=== PATIENT | female | born 1930 | race Caucasian/White ===

== ENCOUNTER 2016-07-17 14:16 | Inpatient (IN) | payer OTHER, MEDICARE ==
[2016-07-17] VITALS (7 sets, daily range): BP systolic 104–129; BP diastolic 40–59
[~2016-07-17] VITALS: Ht 157.5 cm; Wt 55.3 kg
--- NOTE | ~2016-07-17 | H ---
[facility] [place] [address] HISTORY AND PHYSICAL Name: KEYON WELLS Room #: 427-P [facility] IN M.R.#: [id number] Admission: 07/17/16 Attend Phys: Trevor Decker MD Discharge: 07/18/16 Date of : [birth year] Report #: [id number] THIS REPORT FOR: //name// CC: Dr. [facility] Decker DATE OF SERVICE: 07/17/2016 HISTORY OF PRESENT ILLNESS: The patient is an 86-year-old female with a recent diagnosis of acute myeloid leukemia and monoclonal gammopathy of unknown significance was referred for admission from Oncology clinic secondary to weakness and severe anemia. The patient is well known to me from her previous admission here at [facility] for anemia, cough, congestion and weakness. The patient's initial hemoglobin at that time was 6.6. She was transfused packed RBC during that admission. She also underwent upper endoscopy during that admission, which showed grade a esophagitis, hiatal hernia Schatzki ring, which was dilated. During that admission, she was also noticed to be leukopenic and anemic. The patient was evaluated by oncologist and underwent a bone marrow biopsy. The patient stated that she had subsequently followed up with Dr. Gaston and had 5 rounds of chemotherapy, last chemo was few weeks ago. She has apparently scheduled to restart chemo again on August 26. The patient was seen by oncologist today for generalized weakness of 4-day duration. She had no visual disturbance, no focal weakness, no dizziness. During admission, denies any chest pain or shortness of breath. She does have chronic cough. She has had some mild nausea. She has had poor appetite still because of her gastroesophageal reflux disease. PAST MEDICAL HISTORY: Significant for anemia, leukopenia, acute myeloid leukemia, monochromal gammopathy of unknown significance, history of TIA, history of grade a esophagitis hiatal hernia, schatzkis ring. The patient also has history of chronic idiopathic constipation, history of glaucoma, history of partial hysterectomy in the past. ALLERGIES: SULFA, UNKNOWN REACTION. HOME MEDICATIONS: Please look at the nursing documentation. Home meds were reviewed. SOCIAL HISTORY: No smoking, alcohol abuse or illicit drug abuse. The patient lives alone, normally walks without any system, but over the last few days, she started using her walker again. FAMILY HISTORY: Noncontributory for admission. REVIEW OF SYSTEMS: [facility] [address] [place] [address] HISTORY AND PHYSICAL Name: KEYON WELLS Room #: 427-P [facility] IN M.R.#: [id number] Admission: 07/17/16 Attend Phys: Trevor Decker MD Discharge: 07/18/16 Date of : [birth year] Report #: [id number] CONSTITUTIONAL: No fever or chills. EYES: No change in vision. She had lost some weight, unable to quantify. THROAT: Denies any sore throat. CARDIOVASCULAR: No chest pain, dizziness, palpitations. RESPIRATORY: Still has some cough, no expectoration. GASTROINTESTINAL: Mild nausea, no vomiting. She had some few loose stools yesterday. No abdominal pain. GENITOURINARY: No dysuria, hematuria. NEUROLOGIC: No focal numbness or weakness of the extremity. PSYCHIATRIC: No anxiety or depression. The 12-point review of system is negative other than the positive and negative dictated in the history of present illness and the review of system. PHYSICAL EXAMINATION: VITAL SIGNS: Blood pressure 115/48, heart rate of 90 per minute, afebrile. GENERAL: The patient is awake and alert, not in acute respiratory distress. EYES: Pupils equal, reactive to light. THROAT: She has a mildly dry oral mucosa. NECK: Supple, no JVD, no bruit, no lymphadenopathy. CARDIOVASCULAR SYSTEM: S1, S2. No S3, no murmur. CHEST: Bilateral air entry present. Clear on auscultation. ABDOMEN: Soft, bowel sounds present, no mass, no organomegaly, no tenderness. PERIPHERY: No pedal edema. No calf tenderness. Dorsalis pedis 1+. NEUROLOGICAL: No gross motor or sensory deficit. LABORATORY DATA: Reviewed. The labs done this morning showed a hemoglobin of 7.3, her hemoglobin on June 13 was 9.9, hemoglobin was 8.7 on 07/04/2016, white count is 1.8, platelet is 159. She has 5 ____. Chemistry showed a sodium of 134, BUN and creatinine of 52 and 2.0. AST and ALT are within normal limits. ASSESSMENT AND PLAN: 1. Generalized weakness secondary to anemia. 2. Anemia. The patient will be transfused 2 units of packed red blood cells. We will repeat her hemoglobin in the morning. We will consult clinical applications specialist. We will also check a stool for occult blood. The patient does have history of grade a esophagitis in the past. 3. History of grade a esophagitis and hiatal hernia. The patient will be placed on IV Protonix. 4. Deep venous thrombosis prophylaxis. The patient will be placed on sequential compression device on the leg for deep venous thrombosis prophylaxis. 5. Acute myeloid leukemia, presently on chemotherapy, we will consult clinical applications specialist. 6. History of hypertension and history of hyperlipidemia. The patient will be continued on ____ home medication. 7. History of monoclonal gammopathy of unknown significance. [place] [id number] HISTORY AND PHYSICAL Name: KEYON WELLS Room #: 427-P [facility] IN M.R.#: [id number] Admission: 07/17/16 Attend Phys: Trevor Decker MD Discharge: 07/18/16 Date of : [birth year] Report #: [id number] 8. Acute renal failure, likely prerenal. We will check her uric acid level. We will hydrate her with IV fluid and repeat her labs in the morning. Treatment plan has been explained to the patient in detail. <ELECTRONICALLY SIGNED> By: Trevor Decker MD 07/20/16 1417 1633 1734 Trevor Decker MD /nt
--- NOTE | ~2016-07-17 | EKG ---
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: Ellen HUTCHISON : 1930 Requested By: Mayuri Nowak Order Number: [id number] MD: Michael Guzman Measurements Intervals [place] Rate: 96 P: 51 AL: 134 QRS: 20 QRSD: 74 T: 48 QT: 339 QTc: 429 Interpretive Statements Sinus rhythm Posterior infarct, old Baseline wander in lead(s) V1 Compared to ECG 06/09/2016 20:12:25 Myocardial infarct finding now present Atrial premature complex(es) no longer present Electronically Signed On 07-17-2016 15:20:24 [employer]CTOR [employer]SEM[employer] by Michael Guzman [email or web address] <ELECTRONICALLY SIGNED> By: Michael Guzman MD 07/17/16 1520 1440 1440 Michael Guzman MD /JAMES
[~2016-07-17 14:16] MED LIST: ADULT LOW DOSE81 MG PO; AMBIEN 5 MG TABL5 M1 PO; AMITRIPTYLINE H10 M3 PO; AMITRIPTYLINE H25 M3 PO; B-121000 MC2 PO; BENZONATATE200 MG PO; BIOTIN1 MG PO; CENTRUM SILVER1 EAC4 PO; HYDROCHLOROTH12.5 MG PO; LEVAQUIN 500 M500 MG PO; LIPITOR 20 MG T20 M1 PO; LISINOPRIL40 MG PO; MELATONIN3 MG PO; PROTONIX40 M2 PO; SIMVASTATIN20 MG PO; ZYPREXA2.5 MG PO; ZYRTEC
[2016-07-17 14:57] LABS: RDW 17.2 % (10.5-14.5)
[2016-07-17 14:58] LABS: HEMATOCRIT 21.4 % (37.0-47.0); MCH 33.3 pg (26.0-34.0); MCV 97.8 fL (80.0-100.0); PLATELET COUNT 159 thou/uL (150-400); RBC 2.18 mil/uL (4.20-5.00)
[2016-07-17 15:01] LABS: MANUAL DIFF YES
[2016-07-17 15:02] LABS: HEMOGLOBIN 7.3 gm/dL (12.0-15.0)
[2016-07-17 15:03] LABS: WBC 1.8 thou/uL (4.0-11.0)
[2016-07-17 15:07] LABS: ANION GAP 12 mmol/L (7-16); BUN 52 mg/dL (7-18); CALCIUM 9.1 mg/dL (8.5-10.1); CHLORIDE 97 mmol/L (98-107); CO2 25 mmol/L (21-32); GLUCOSE 122 mg/dL (70-99); POTASSIUM 4.6 mmol/L (3.5-5.1); SODIUM 134 mmol/L (136-145)
[2016-07-17 15:12] LABS: ALBUMIN 2.8 g/dL (3.4-5.0); ALKALINE PHOSPHATASE 103 U/L (46-116); SGOT 15 U/L (15-37); SGPT 26 U/L (30-65); TOTAL BILIRUBIN 0.6 mg/dL (<0.1-1.0); TOTAL PROTEIN 7.2 g/dL (6.4-8.2); TROPONIN-I < 0.04 ng/mL (<0.04-0.07)
[2016-07-17 15:46] LABS: ABSOLUTE NEUTROPHILS 0.9 thou/uL (1.4-8.2)
[2016-07-17 15:47] LABS: ATYPICAL LYMPHS 5 %
[2016-07-17 15:50] LABS: ANISOCYTOSIS 1+; BLASTS 5 %
[2016-07-18 04:00] VITALS: BP 138/58
[2016-07-18 04:46] LABS: HEMATOCRIT 28.2 % (37.0-47.0); MCH 31.1 pg (26.0-34.0); MCHC 33.9 % (28.0-37.0); PLATELET COUNT 103 thou/uL (150-400); RBC 3.06 mil/uL (4.20-5.00); RDW 17.5 % (10.5-14.5)
[2016-07-18 04:56] LABS: HEMOGLOBIN 9.5 gm/dL (12.0-15.0)
[2016-07-18 04:57] LABS: MANUAL DIFF YES
[2016-07-18 04:58] LABS: WBC 1.2 thou/uL (4.0-11.0)
[2016-07-18 05:03] LABS: ALBUMIN 2.3 g/dL (3.4-5.0); CALCIUM 8.4 mg/dL (8.5-10.1); CREATININE 1.3 mg/dL (0.6-1.3); MAGNESIUM 2.1 mg/dL (1.8-2.4); POTASSIUM 3.9 mmol/L (3.5-5.1); TOTAL BILIRUBIN 0.4 mg/dL (<0.1-1.0)
[2016-07-18 08:50] LABS: TOTAL CELL COUNT 100
[2016-07-18 08:52] LABS: ATYPICAL LYMPHS 3 %
[2016-07-18 08:54] LABS: ABSOLUTE NEUTROPHILS 0.6 thou/uL (1.4-8.2)
[2016-07-18 08:59] LABS: BLASTS 3 %
[2016-07-18 15:56] VITALS: BP 138/58
[2016-07-18 15:58] VITALS: BP 138/58
[2016-07-18] MEDS ORDERED: PROTONIX40 M2 PO (16:03)
[2016-07-18] MEDS ORDERED: DELSYM COU30 MG/5 ML PO (16:03)
[2016-07-18 17:03] VITALS: BP 138/58
[2016-08-16] MEDS ORDERED: ASPIR 8181 MG PO (11:50)
== END 2016-07-18 17:09 | disposition home health service (06) | DRG 811 ==
LOC: ER 14:16 → 4E 16:17 → EROBS 16:17 → 4E 17:53
PROVIDERS: Emergency Medicine; Internal Medicine
PROC: 30233N1 Transfusion of Nonautologous Red Blood Cells into Peripheral Vein, Percutaneous Approach (ICD-10-PCS; principal; 2016-07-17)
DX: D64.89 Other specified anemias (principal); E43 Unspecified severe protein-calorie malnutrition; C92.Z0 Other myeloid leukemia not having achieved remission; N17.9 Acute kidney failure, unspecified; E87.1 Hypo-osmolality and hyponatremia; K44.9 Diaphragmatic hernia without obstruction or gangrene; R05 Cough; K21.9 Gastro-esophageal reflux disease without esophagitis; Z60.2 Problems related to living alone; E78.5 Hyperlipidemia, unspecified; K59.04 Chronic idiopathic constipation; H40.9 Unspecified glaucoma; I10 Essential (primary) hypertension; E78.00 Pure hypercholesterolemia, unspecified; D47.2 Monoclonal gammopathy; Z86.73 Personal history of transient ischemic attack (TIA), and cerebral infarction without residual deficits; Z88.2 Allergy status to sulfonamides; Z98.49 Cataract extraction status, unspecified eye; Z79.899 Other long term (current) drug therapy; Z90.711 Acquired absence of uterus with remaining cervical stump; Z92.21 Personal history of antineoplastic chemotherapy
CPT/HCPCS: 10183

== ENCOUNTER 2016-09-25 16:33 | Observation (INO) | payer OTHER, MEDICARE ==
[~2016-09-25] VITALS: Ht 157.5 cm; Wt 53.1 kg
--- NOTE | ~2016-09-25 | S ---
[facility] [place] [address] SURGICAL PATH RPT PROCEDURE Name: KEYON WELLS Room #: 313-P [facility] Ayana Cole#: [id number] Admission: 09/25/16 Date of : [birth year] Discharge: 09/26/16 Report #: [id number] Path Case #: [id number] PATHOLOGY REPORT COLLECTION DATE: 09/26/2016 RECEIVED DATE: 09/26/2016 SUBMITTING PHYS: Natalie Mota M.D. OTHER PHYS[facility] SPECIMEN(S) RECEIVED: A.Peripheral smear * * * * * * * * * * * * FINAL DIAGNOSIS: Peripheral blood smear: - MODERATE NORMOCYTIC ANEMIA AND LEUKOPENIA WITH DYSPOIETIC CHANGES AND RARE CIRCULATING BLASTS. (SEE COMMENT) COMMENT: Overall, the peripheral blood has moderate normocytic anemia and moderate leukopenia with dyspoietic changes and rare circulating blasts. No Rafal rods are seen. The platelet count is within the normal reference range. The findings are most likely related to the patient's previously diagnosed acute myeloid leukemia ([id number]). Correlation with clinical history and additional laboratory data is recommended. (JOSEF:; d/t: 09/26/16) PATHOLOGIST: Natalie Mota M.D. REPORT ELECTRONICALLY SIGNED BY: Natalie Mota M.D. DATE/TIME: 09/26/2016 16:39 * * * * * * * * * * * * MICROSCOPIC DESCRIPTION: CBC Data (09/26/16): WBC 1,500 /uL, RBC 3.16, hemoglobin 9.2 g/dL, hematocrit 27.2%, MCV 86.3 fL, MCH 29.1 pg, MCHC 33.8 g/dL, RDW 19.7%, and platelet count 190,000 /uL. Manual white blood cell differential: 20% segs, 71% lymphs, 1% monos, 1% eos, 1% myelo, 2% blast, and 4% atypical lymphs with 1 NRBC/100 WBC. Peripheral Blood Smear: Cytomorphological examination of the Dean's stained peripheral blood smear confirms the provided data. Red blood cells show moderate normocytic anemia with mild to moderate anisocytosis. No significant poikilocytosis is identified. No schistocytes or [address] [address] SURGICAL PATH RPT PROCEDURE Name: KEYON WELLS Room #: 313-P [facility] Ayana Cole#: [id number] Admission: 09/25/16 Date of : [birth year] Discharge: 09/26/16 Report #: [id number] Path Case #: [id number] microspherocytes are seen. White blood cells are decreased in number. They are predominantly lymphocytes that are small, round, and mature appearing with condensed chromatin and scant cytoplasm. Granulocytes are predominantly segmented neutrophils with dyspoietic changes including hypogranularity and abnormal nuclear lobation. Rare blasts without Rafal rods are noted on scanning. A micromegakaryocyte is also seen. Platelets are adequate in number and mainly normal in morphology with rare larger platelets and occasional giant platelets noted. Rare nucleated red blood cells are seen. CLINICAL HISTORY: 86 year-old woman with anemia, leukopenia, and history of AML. Morphologic review of the peripheral blood smear is requested by the [facility] technologist. INITIAL CPT CODE(S): A; [place] Professional services performed by [facility] at [facility] [address], [place] [address] Technical services performed by [employer] at [address] [place] [address], [address], [place] [address]. [facility] [address] [place] [address] PHONE: [phone] DIRECTOR: Jayjay Marshall M.D. * * * END OF REPORT * * *
[~2016-09-25 16:33] MED LIST changes: +ASPIR 8181 MG PO; +DELSYM COU30 MG/5 ML PO
[2016-09-25 16:35] VITALS: BP 93/46
[2016-09-25 17:04] LABS: MCH 29.5 pg (26.0-34.0); MCHC 33.8 g/dL (28.0-37.0); MCV 87.5 fL (80.0-100.0); PLATELET COUNT 253 thou/uL (150-400); RBC 2.18 mil/uL (4.20-5.00); RDW 22.5 % (10.5-14.5)
[2016-09-25 17:08] LABS: MANUAL DIFF YES
[2016-09-25 17:09] LABS: CALCIUM 8.5 mg/dL (8.5-10.1); CREATININE 1.2 mg/dL (0.6-1.3); HEMOGLOBIN 6.4 gm/dL (12.0-15.0); POTASSIUM 4.4 mmol/L (3.5-5.1); WBC 1.6 thou/uL (4.0-11.0)
[2016-09-25 17:10] LABS: HEMATOCRIT 19.1 % (37.0-47.0)
[2016-09-25 17:12] LABS: APTT 32.7 Seconds (24.5-32.8); PROTIME 10.7 Seconds (9.3-11.4)
[2016-09-25 17:13] LABS: ALBUMIN 2.8 g/dL (3.4-5.0); TOTAL BILIRUBIN 0.3 mg/dL (<0.1-1.0); TOTAL PROTEIN 6.5 g/dL (6.4-8.2)
[2016-09-25 17:35] LABS: ABSOLUTE NEUTROPHILS 0.7 thou/uL (1.4-8.2); NUCLEATED RBCS 2 /100WBC; TOTAL CELL COUNT 100
[2016-09-25 17:36] LABS: ANISOCYTOSIS 2+; HYPOCHROMASIA 1+; POLYCHROMASIA SLIGHT
[2016-09-25 18:43] VITALS: BP 107/41; BP 120/46
[2016-09-25 22:15] VITALS: BP 118/52; BP 119/51; BP 119/57
[2016-09-26 04:11] VITALS: BP 140/65
[2016-09-26 06:30] LABS: MCH 29.1 pg (26.0-34.0); RBC 3.16 mil/uL (4.20-5.00)
[2016-09-26 06:32] LABS: HEMATOCRIT 27.2 % (37.0-47.0); MCHC 33.8 g/dL (28.0-37.0); MCV 86.3 fL (80.0-100.0); PLATELET COUNT 190 thou/uL (150-400); RDW 19.7 % (10.5-14.5)
[2016-09-26 06:39] LABS: HEMOGLOBIN 9.2 gm/dL (12.0-15.0); MANUAL DIFF YES; WBC 1.5 thou/uL (4.0-11.0)
[2016-09-26 06:43] LABS: CALCIUM 8.2 mg/dL (8.5-10.1); CREATININE 1.2 mg/dL (0.6-1.3); POTASSIUM 4.3 mmol/L (3.5-5.1)
[2016-09-26 08:00] VITALS: BP 129/41
[2016-09-26 10:38] VITALS: BP 129/41
[2016-09-26 12:42] VITALS: BP 129/41
[2016-09-26 14:40] LABS: ABSOLUTE NEUTROPHILS 0.3 thou/uL (1.4-8.2); ATYPICAL LYMPHS 4 %; MYELOCYTES 1 %; NUCLEATED RBCS 1 /100WBC; TOTAL CELL COUNT 100
[2016-09-26 14:44] LABS: ANISOCYTOSIS 2+; BLASTS 2 %
== END 2016-09-26 11:21 | disposition home or self-care (01) ==
LOC: ER 16:33 → EROBS 17:01 → 3N 17:01
PROVIDERS: Emergency Medicine
DX: D53.9 Nutritional anemia, unspecified (principal)

== ENCOUNTER → 2016-10-20 | Outpatient (CLI) | payer OTHER, MEDICARE ==
[2016-10-20 13:31] VITALS: BP 115/33; BP 115/34
== END ==
LOC: OPONC 11:58
DX: C92.00 Acute myeloblastic leukemia, not having achieved remission (principal)
CPT/HCPCS: 91030

== ENCOUNTER → 2016-10-24 | Outpatient (CLI) | payer OTHER, MEDICARE | LOC: RAD 08:06 | DX: R13.10 Dysphagia, unspecified (principal) ==

== ENCOUNTER → 2016-11-08 | Outpatient (CLI) | payer OTHER, MEDICARE ==
[~2016-11-08] VITALS: Ht 157.5 cm; Wt 53.1 kg
[2016-11-08 11:49] VITALS: BP 110/43
[2016-11-08 12:23] VITALS: BP 106/43; BP 113/44
== END ==
LOC: OPONC 07:09
DX: D64.9 Anemia, unspecified (principal)
CPT/HCPCS: 91030

== ENCOUNTER 2016-11-16 22:06 | Inpatient (IN) | payer OTHER, MEDICARE ==
[~2016-11-16] VITALS: Ht 165.1 cm; Wt 51.4 kg
--- NOTE | ~2016-11-16 | S ---
[facility] [place] [address] SURGICAL PATH RPT PROCEDURE Name: KEYON WELLS Room #: 461-P ADM IN M.R.#: [id number] Admission: 11/16/16 Date of : [birth year] Discharge: Report #: [id number] Path Case #: [id number] PATHOLOGY REPORT COLLECTION DATE: 11/16/2016 RECEIVED DATE: 11/17/2016 SUBMITTING PHYS: Natalie Mota M.D. OTHER PHYS: Dr. Wu Gaston SPECIMEN(S) RECEIVED: A.Peripheral smear * * * * * * * * * * * * FINAL DIAGNOSIS: Peripheral blood smear: - CONSISTENT WITH ACUTE LEUKEMIA, RESIDUAL / RECURRENT. (SEE COMMENT) COMMENT: Overall the peripheral blood has pancytopenia with 23% circulating blasts consistent with the patient's previously diagnosed acute myeloid leukemia ([id number]). Significant dyspoiesis is also noted. Correlation with clinical history and additional laboratory data is recommended. (CLW:diogo; d/t: 11/17/2016) PATHOLOGIST: Natalie Mota M.D. REPORT ELECTRONICALLY SIGNED BY: Natalie Mota M.D. DATE/TIME: 11/17/2016 14:07 * * * * * * * * * * * * MICROSCOPIC DESCRIPTION: CBC DATA (11/16/16): WBC: 2,300/uL; RBC: 2.81; Hgb: 8.1 g/dL; Hct: 23.7%; MCV: 84.3 fL; MCH: 28.9 pg; MCHC: 34.3%; RDW: 19.3%; platelets: 121,000 /uL. Manual white blood cell differential (per pathologist): segs - 52%, bands - 1%, lymphs - 15%, monos - 5%, eos - 1%, myelos 3%, blasts 23%. 7 RBCs per 100 WBCs. Peripheral blood smear: Cytomorphological examination of the Dean's-stained peripheral blood smear confirms the provided data. Red blood cells show moderate to severe normocytic anemia with mild anisopoikilocytosis. No schistocytes are seen. White blood cells are decreased in number. They are predominantly segmented neutrophils with left shifted maturation and numerous circulating blasts. Blasts are small to medium sized with fine nuclear chromatin, [place] [address] SURGICAL PATH RPT PROCEDURE Name: KEYON WELLS Room #: 461-P ADM IN M.R.#: [id number] Admission: 11/16/16 Date of : [birth year] Discharge: Report #: [id number] Path Case #: [id number] scant cytoplasm. Mature granulocytes have dyspoietic changes with hypogranularity. Lymphocytes are predominantly small, round and mature-appearing with condensed chromatin and scant cytoplasm. Platelets are mildly decreased in number and mainly normal in morphology with rare larger platelets noted. Numerous nucleated red blood cells, with focal dyspoietic changes, are identified. GROSS PATHOLOGY: A peripheral blood smear labeled "Ever, Keyon" is submitted for review. CLINICAL HISTORY: 86-year-old woman with pancytopenia and history of AML. Morphologic review of the peripheral smear is requested by the [facility] technologist. INITIAL CPT CODE(S): A; [place] Professional services performed by [facility] at [facility] [address], [place] [address] Technical services performed by [email or web address] at [address] [place] [address], [address], [place] [address]. [facility] [address] [place] [address] PHONE: [phone] DIRECTOR: Jayjay Marshall M.D. * * * END OF REPORT * * *
--- NOTE | ~2016-11-16 | EKG ---
[place] [address] [address] [facility] [place] [address] ELECTROCARDIOGRAM REPORT Name: KEYON WELLS Room #: 461-P ADM IN M.R.#: [id number] Admission: 11/16/16 Attend Phys: Wu De Jesus Discharge: Date of : [birth year] Report #: [id number] THIS REPORT FOR: //name// [facility] Test Date: 2016-11-19 Test Time: 19:53:45 Pat Name: KEYON WELLS Department: Room: 461 Gender: F Surgical Rn: luz domingo rn : 1930 Requested By: Jayce Carroll Order Number: [id number] MD: Aram Tavera Measurements Intervals [place] Rate: 107 P: NV: QRS: 33 QRSD: 80 T: 15 QT: 364 QTc: 486 Interpretive Statements Atrial fibrillation Borderline low voltage, extremity leads Compared to ECG 07/17/2016 14:40:58 No significant change was found Electronically Signed On 11-20-2016 8:53:34 CDT by Aram Tavera [email or web address] <ELECTRONICALLY SIGNED> By: Aram Tavera MD, [facility] 11/20/16 0853 52 52 Aram Tavera MD, [facility] /EPI
--- NOTE | ~2016-11-16 | EKG ---
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
[2016-11-16 22:07] VITALS: BP 129/47
[2016-11-16 22:11] LABS: ABG SAMPLE TYPE ARTERIAL; BE(vivo) -2.9 mmol/L (-2 to +3); HCO3 19.6 mmol/L (22.0-26.0); LACTATE 0.95 mmol/L (0.5-2.0); O2(CT) 11.9 mL/dL (15.0-23.0); O2Hb 92.2 % (92.0-98.0); PCO2 26.2 mmHg (35.0-45.0); PO2 68.1 mmHg (80.0-100.0); STICK SITE R.BRACHIAL; pH 7.491 (7.360-7.450); sO2 95.2 % (92.0-98.0); tCO2 20.4 mmol/L (24.0-30.0)
[2016-11-16 22:26] LABS: HEMATOCRIT 23.7 % (37.0-47.0); HEMOGLOBIN 8.1 gm/dL (12.0-15.0); MCH 28.9 pg (26.0-34.0); MCHC 34.3 g/dL (28.0-37.0); MCV 84.3 fL (80.0-100.0); PLATELET COUNT 121 thou/uL (150-400); RBC 2.81 mil/uL (4.20-5.00); RDW 19.3 % (10.5-14.5); WBC 2.3 thou/uL (4.0-11.0)
[2016-11-16 22:27] LABS: MANUAL DIFF YES
[2016-11-16 22:30] LABS: ANION GAP 11 mmol/L (7-16); BUN 47 mg/dL (7-18); CALCIUM 8.5 mg/dL (8.5-10.1); CHLORIDE 102 mmol/L (98-107); CO2 21 mmol/L (21-32); CREATININE 1.3 mg/dL (0.6-1.0); GLUCOSE 133 mg/dL (74-106); POTASSIUM 3.8 mmol/L (3.5-5.1); SODIUM 134 mmol/L (136-145)
[2016-11-16 22:47] LABS: URINE BILIRUBIN NEGATIVE (Negative); URINE BLOOD NEGATIVE (Negative); URINE COLOR YELLOW; URINE GLUCOSE-RANDOM* NEGATIVE (Negative); URINE KETONES NEGATIVE (Negative); URINE LEUKOCYTES-REFLEX NEGATIVE (Negative); URINE PROTEIN (DIPSTICK) NEGATIVE (Negative); URINE UROBILINOGEN 0.2 E.U./dl (0.2-1.0)
[2016-11-16 22:50] LABS: ALBUMIN 1.8 g/dL (3.4-5.0); ALKALINE PHOSPHATASE 125 U/L (46-116); NT-PRO BRAIN NAT PEPTIDE 2489 pg/mL (<300); SGOT 19 U/L (15-37); SGPT 20 U/L (30-65); TOTAL BILIRUBIN 0.8 mg/dL (<0.1-1.0); TOTAL PROTEIN 6.2 g/dL (6.4-8.2); TROPONIN-I < 0.04 ng/mL (<0.04-0.07)
[2016-11-16 23:11] LABS: TOTAL CELL COUNT 50
[2016-11-16 23:51] VITALS: BP 121/48
[2016-11-17 00:42] VITALS: BP 124/55
[2016-11-17] MEDS ORDERED: ALLER-EASE60 MG PO (01:09)
[2016-11-17] MEDS ORDERED: ATROVENT HFA14 GM INH (01:09)
[2016-11-17] MEDS ORDERED: HYDROCHLOROTH12.5 M1 PO (01:09)
[2016-11-17] MEDS ORDERED: MS CONTIN15 MG PO (01:10)
[2016-11-17] MEDS ORDERED: PRESERVISION T1 EACH PO (01:12)
[2016-11-17 01:13] LABS: ABG SAMPLE TYPE ARTERIAL; BE(vivo) -1.9 mmol/L (-2 to +3); HCO3 21.8 mmol/L (22.0-26.0); LACTATE 0.95 mmol/L (0.5-2.0); O2Hb 95.8 % (92.0-98.0); PCO2 32.3 mmHg (35.0-45.0); PO2 99.5 mmHg (80.0-100.0); pH 7.447 (7.360-7.450); sO2 97.8 % (92.0-98.0); tCO2 22.8 mmol/L (24.0-30.0)
[2016-11-17] MEDS ORDERED: TESSALON PERLE100 MG PO (01:13)
[2016-11-17 01:14] LABS: STICK SITE R.RADIAL
[2016-11-17 04:37] VITALS: BP 123/63
[2016-11-17 08:12] VITALS: BP 107/44
[2016-11-17 11:57] VITALS: BP 117/50
[2016-11-17 12:26] LABS: ABSOLUTE NEUTROPHILS 1.2 thou/uL (1.4-8.2)
[2016-11-17 12:27] LABS: MYELOCYTES 3 %; NUCLEATED RBCS 7 /100WBC
[2016-11-17 12:30] LABS: BLASTS 23 %
[2016-11-17 16:00] VITALS: BP 102/82
[2016-11-17 20:44] VITALS: BP 117/47
[2016-11-18 03:59] VITALS: BP 113/58
[2016-11-18 07:32] VITALS: BP 119/44
[2016-11-18 13:09] VITALS: BP 96/46
[2016-11-18 15:27] VITALS: BP 106/39
[2016-11-18 20:54] VITALS: BP 120/65
[2016-11-19 00:28] VITALS: BP 115/49
[2016-11-19 05:19] VITALS: BP 124/88
[2016-11-19 08:26] VITALS: BP 122/50
[2016-11-19 13:15] VITALS: BP 135/48
[2016-11-19 19:57] LABS: HEMATOCRIT 22.1 % (37.0-47.0); HEMOGLOBIN 7.4 gm/dL (12.0-15.0); MCH 28.7 pg (26.0-34.0); MCHC 33.6 g/dL (28.0-37.0); MCV 85.3 fL (80.0-100.0); PLATELET COUNT 99 thou/uL (150-400); RBC 2.59 mil/uL (4.20-5.00); RDW 20.3 % (10.5-14.5); WBC 2.3 thou/uL (4.0-11.0)
[2016-11-19 19:59] LABS: MANUAL DIFF YES
[2016-11-19 20:41] LABS: NUCLEATED RBCS 6 /100WBC
[2016-11-19 20:42] LABS: OVALOCYTES 1+; TARGET CELLS FEW
[2016-11-19 20:43] LABS: ANISOCYTOSIS 2+
[2016-11-19 20:49] LABS: BLASTS 24 %; PROMYELOCYTES 4 %
[2016-11-19 22:26] LABS: URINE BILIRUBIN NEGATIVE (Negative); URINE BLOOD 2+ (Negative); URINE COLOR YELLOW; URINE GLUCOSE-RANDOM* NEGATIVE (Negative); URINE KETONES NEGATIVE (Negative); URINE NITRITE NEGATIVE (Negative); URINE PROTEIN (DIPSTICK) TRACE (Negative)
[2016-11-19 23:56] VITALS: BP 123/42
[2016-11-20 00:22] LABS: URINE RBC 3-10 Few /HPF (0-2)
[2016-11-20 00:23] LABS: AMORPHOUS URATES Few /LPF (None Seen); BACTERIA None Seen /HPF (None Seen); CASTS None Seen /LPF (None Seen); SQUAMOUS 0-3 Few /LPF (0-3); URINE WBC None Seen /HPF (0-5)
[2016-11-20 04:33] VITALS: BP 99/47
[2016-11-20 07:27] LABS: HEMATOCRIT 23.4 % (37.0-47.0); HEMOGLOBIN 7.9 gm/dL (12.0-15.0); MCH 28.4 pg (26.0-34.0); MCHC 33.8 g/dL (28.0-37.0); MCV 84.1 fL (80.0-100.0); RBC 2.78 mil/uL (4.20-5.00); RDW 20.4 % (10.5-14.5)
[2016-11-20 07:35] VITALS: BP 114/36
[2016-11-20 07:41] LABS: CREATININE 1.1 mg/dL (0.6-1.0); POTASSIUM 3.4 mmol/L (3.5-5.1)
[2016-11-20 11:50] VITALS: BP 103/49
[2016-11-20 15:50] VITALS: BP 108/45
[2016-11-20 20:00] VITALS: BP 118/50
[2016-11-21 04:00] VITALS: BP 125/57
[2016-11-21 05:37] LABS: MCHC 33.7 g/dL (28.0-37.0); WBC 2.6 thou/uL (4.0-11.0)
[2016-11-21 05:39] LABS: CALCIUM 7.9 mg/dL (8.5-10.1); POTASSIUM 3.2 mmol/L (3.5-5.1)
[2016-11-21 05:40] LABS: HEMATOCRIT 20.3 % (37.0-47.0); MCH 28.3 pg (26.0-34.0); PLATELET COUNT 90 thou/uL (150-400); RBC 2.41 mil/uL (4.20-5.00); RDW 20.1 % (10.5-14.5)
[2016-11-21 05:44] LABS: MANUAL DIFF YES
[2016-11-21 05:46] LABS: HEMOGLOBIN 6.8 gm/dL (12.0-15.0)
[2016-11-21 06:54] LABS: ABSOLUTE NEUTROPHILS 1.1 thou/uL (1.4-8.2); METAMYELOCYTES 4 %; MYELOCYTES 8 %; PROMYELOCYTES 1 %; TOTAL CELL COUNT 100
[2016-11-21 06:55] LABS: ANISOCYTOSIS 2+; LARGE PLATELETS FEW; MACROCYTES 1+; MICROCYTES 1+; NUCLEATED RBCS 2 /100WBC; POLYCHROMASIA 1+
[2016-11-21 07:39] VITALS: BP 117/89
[2016-11-21 12:00] VITALS: BP 111/43
[2016-11-21 13:12] VITALS: BP 100/45; BP 97/47
[2016-11-21] MEDS ORDERED: LEVAQUIN 500 M500 M2 PO (14:14)
[2016-11-21 15:16] LABS: BLASTS 16 %
[2016-11-21 16:28] VITALS: BP 116/55
[2016-11-21 20:18] VITALS: BP 121/50
[2016-11-22] VITALS (7 sets, daily range): BP systolic 105–149; BP diastolic 42–88
[2016-11-23 04:04] VITALS: BP 149/44
[2016-11-23 05:52] LABS: HEMATOCRIT 25.5 % (37.0-47.0); HEMOGLOBIN 8.5 gm/dL (12.0-15.0); MCH 27.7 pg (26.0-34.0); MCHC 33.4 g/dL (28.0-37.0); MCV 82.9 fL (80.0-100.0); PLATELET COUNT 84 thou/uL (150-400); RBC 3.07 mil/uL (4.20-5.00); RDW 19.5 % (10.5-14.5); WBC 3.3 thou/uL (4.0-11.0)
[2016-11-23 06:08] LABS: MANUAL DIFF YES
[2016-11-23 07:55] VITALS: BP 123/50
[2016-11-23 08:55] LABS: ABSOLUTE NEUTROPHILS 1.3 thou/uL (1.4-8.2); MYELOCYTES 2 %; NUCLEATED RBCS 4 /100WBC; PLATELET ESTIMATE SLIGHTLY DECREASED; PROMYELOCYTES 2 %; TOTAL CELL COUNT 100
[2016-11-23 08:59] LABS: BLASTS 30 %
[2016-11-23 11:39] VITALS: BP 140/44
[2016-11-23 15:21] VITALS: BP 116/45
[2016-11-23 20:42] VITALS: BP 133/64
[2016-11-23 23:35] VITALS: BP 127/51
[2016-11-24 06:02] VITALS: BP 133/48
[2016-11-24 08:34] VITALS: BP 112/38
[2016-11-24 10:33] VITALS: BP 112/38
[2016-11-24 11:21] VITALS: BP 113/62
[2016-11-24 15:27] VITALS: BP 126/47
== END 2016-11-24 19:20 | disposition hospice, home (50) | DRG 177 ==
LOC: ER 22:06 → EROBS 23:36 → 4W 23:36 → EROBS 23:55 → 4W 11-17 00:40
PROVIDERS: Emergency Medicine; Family Medicine; Internal Medicine Hematology & Oncology
DX: J69.0 Pneumonitis due to inhalation of food and vomit (principal); E43 Unspecified severe protein-calorie malnutrition; J96.01 Acute respiratory failure with hypoxia; D61.810 Antineoplastic chemotherapy induced pancytopenia; G92 Toxic encephalopathy; I48.92 Unspecified atrial flutter; N17.9 Acute kidney failure, unspecified; C92.10 Chronic myeloid leukemia, BCR/ABL-positive, not having achieved remission; Z68.1 Body mass index [BMI] 19.9 or less, adult; E78.5 Hyperlipidemia, unspecified; I10 Essential (primary) hypertension; E87.6 Hypokalemia; T45.1X5A Adverse effect of antineoplastic and immunosuppressive drugs, initial encounter; Z66 Do not resuscitate; Z51.5 Encounter for palliative care; Y95 Nosocomial condition; Z88.2 Allergy status to sulfonamides; Y92.89 Other specified places as the place of occurrence of the external cause; Z92.21 Personal history of antineoplastic chemotherapy
CPT/HCPCS: 10045